=== PATIENT | male | born 1935 | race Caucasian/White ===

== ENCOUNTER 2020-11-17 12:04 | Outpatient (CLI) | payer MEDICARE ==
[2020-11-17 13:40] LABS: INR-International Normal Ratio 0.9; PTT 26.2 sec (22.0-33.0); Prothrombin Time 10.5 sec (9.5-12.1)
[2020-11-17 13:42] LABS: Mean Corpuscular HGB CONC 31.3 g/dL (32.0-36.0); Mean Corpuscular Hemoglobin 26.5 pg (27.0-33.0); Mean Corpuscular Volume 84.7 fl (81.2-95.1); Platelet Count 352 10x3/uL (150-450); RBC Distribution Width 17.5 % (11.5-14.5); Red Blood Cell (RBC) Count 4.52 10x6/uL (4.32-5.72); White Blood Cell (WBC) Count 6.1 10x3/uL (3.5-10.5)
[2020-11-17 14:14] LABS: Anion Gap 13 mmol/L (10-20); BUN (Urea Nitrogen) 19 mg/dL (8.4-25.7); Calc. Creatinine Clearance 0 mL/min (70-130); Calcium 9.4 mg/dL (7.8-10.44); Carbon Dioxide 23 mmol/L (23-31); Chloride 107 mmol/L (98-107); Glucose 100 mg/dL (83-110); Potassium 4.2 mmol/L (3.5-5.1); Sodium 139 mmol/L (136-145)
[2020-11-17 23:09] LABS: SARS-CoV-2 PCR by NAA Not Detected (NotDetected)
== END 2020-11-17 12:05 | disposition home or self-care (01) ==
LOC: LABBT 12:04
PROVIDERS: ATTEND Surgery
DX: Z01.818 Encounter for other preprocedural examination (principal); M48.062 Spinal stenosis, lumbar region with neurogenic claudication; M54.16 Radiculopathy, lumbar region; Z20.822 Contact with and (suspected) exposure to COVID-19
CPT/HCPCS: 80048; 85027; 85610; 85730; 93005; U0003; U0005; 93010

== ENCOUNTER 2020-11-20 05:38 | Day surgery (SDC) | payer MEDICARE ==
[2020-11-20] MEDS ORDERED: Thrombin 5000 UNITS/5 ML VIAL ONE ×2 (07:00→11:02)
[2020-11-20] MEDS ORDERED: Fentanyl 250 MCG/5 ML VIAL ONE (07:11)
[2020-11-20] MEDS ORDERED: Dexmedetomidine 200 MCG/2 ML VIAL ONE (07:11)
[2020-11-20] MEDS ORDERED: Phenylephrine 10 MG/ML VIAL ONE ×2 (07:14→10:24)
[2020-11-20] MEDS ORDERED: SUGAMMADEX SODIUM 200 MG/2 ML VIAL ONE (07:21)
[2020-11-20] MEDS ORDERED: Dexamethasone 20 MG/5 ML VIAL ONE (07:54)
[2020-11-20] MEDS ORDERED: Glycopyrrolate 0.2 MG/ML 5 ML SYRINGE ONE (07:54)
[2020-11-20] MEDS ORDERED: Ketorolac Tromethamine 30 MG/ML VIAL ONE (07:54)
[2020-11-20] MEDS ORDERED: Ondansetron PF 4 MG/2 ML Vial ONE (07:54)
[2020-11-20] MEDS ORDERED: Lidocaine 1% PF 5 ML VIAL ONE (07:54)
[2020-11-20] MEDS ORDERED: ePHEDrine 50 MG/ML VIAL ONE (07:54)
[2020-11-20] MEDS ORDERED: Rocuronium Bromide 10 MG/ML (10ML VIAL) ONE (07:54)
[2020-11-20] MEDS ORDERED: PROPOFOL 200 MG/20 ML VIAL ONE (07:54)
[2020-11-20] MEDS ORDERED: Ondansetron HCl/PF 4 MG/2 ML Vial IVP PRN (12:10)
[2020-11-20] MEDS ORDERED: Promethazine HCl 25 MG/ML VIAL IVPB PRN (12:10)
[2020-11-20] MEDS ORDERED: Promethazine HCl 25 MG/ML VIAL IM PRN (12:10)
[2020-11-20] MEDS ORDERED: Acetaminophen/Codeine 30-300mg Tablet PO PRN (12:26)
[2020-11-20] MEDS ORDERED: traMADol HCl 50 MG TAB PO PRN (12:26)
[2020-11-20] MEDS ORDERED: Acetaminophen 325 MG TAB PO PRN (12:26)
[2020-11-20] MEDS ORDERED: HYDROcodone/Acetaminophen 7.5/325 mg Tablet PO PRN (12:26)
[2020-11-20] MEDS ORDERED: Morphine 2 MG/ML VIAL SLOW IVP PRN (12:26)
[2020-11-20] MEDS ORDERED: tiZANidine HCl 4 MG TAB PO PRN (12:28)
[2020-11-20] MEDS ORDERED: Sodium Chloride 0.9% 1,000 ML IV SCH (12:30)
[2020-11-20] MEDS ORDERED: Fentanyl 100 MCG/2 ML VIAL ONE (13:24)
[2020-11-20] MEDS ORDERED: CEFAZOLIN 2 GM in Premix Bag 1 BAG IVPB SCH (14:00)
[2020-11-20] MEDS ORDERED: HYDROcodone/Acetaminophen 5/325 mg Tablet ONE (14:39)
[2020-11-20] MEDS ORDERED: Tamsulosin HCl 0.4 MG CAP PO SCH (21:00)
[2020-11-20] MEDS ORDERED: Flecainide 50 MG TAB PO SCH (21:00)
[2020-11-21] MEDS ORDERED: Ferrous Sulfate 325 MG TAB PO SCH (08:00)
[2020-11-21] MEDS ORDERED: azaTHIOprine 50 MG TAB PO SCH (09:00)
== END 2020-11-20 17:15 | disposition home or self-care (01) ==
LOC: SDC 05:38
PROVIDERS: ATTEND Surgery
PROC: 01NB0ZZ Release Lumbar Nerve, Open Approach (ICD-10-PCS; principal; 2020-11-20)
DX: M48.062 Spinal stenosis, lumbar region with neurogenic claudication (principal); M51.16 Intervertebral disc disorders with radiculopathy, lumbar region; G70.00 Myasthenia gravis without (acute) exacerbation; Z79.899 Other long term (current) drug therapy; Z88.8 Allergy status to other drugs, medicaments and biological substances
CPT/HCPCS: 63047; 63048; 63056; 76000; P9045; J0690; J1100; J1885; J2370; J2405; J2704; J3010; J3370; J3490

== ENCOUNTER 2021-11-23 11:10 | Outpatient (CLI) | payer OTHER | END 2021-11-23 11:11 | disposition home or self-care (01) | LOC: TBSIIMAG 11:10 | PROVIDERS: ATTEND Surgery | DX: M48.062 Spinal stenosis, lumbar region with neurogenic claudication (principal); Z98.890 Other specified postprocedural states | CPT/HCPCS: 72148 ==

== ENCOUNTER 2022-10-21 13:12 | Outpatient (CLI) | payer OTHER | END 2022-10-21 13:13 | disposition home or self-care (01) | LOC: RAD 13:12 | PROVIDERS: ATTEND Anesthesiology Pain Medicine | DX: M47.26 Other spondylosis with radiculopathy, lumbar region (principal); I71.40 Abdominal aortic aneurysm, without rupture, unspecified; I70.0 Atherosclerosis of aorta; M43.16 Spondylolisthesis, lumbar region | CPT/HCPCS: 72110 ==